=== PATIENT | male | born 1995 | race Caucasian/White ===

== ENCOUNTER → 2017-03-01 | Outpatient (CLI) | payer BC | LOC: MRI 09:00 | DX: H47.333 Pseudopapilledema of optic disc, bilateral (principal); H47.323 Drusen of optic disc, bilateral | CPT/HCPCS: 70543; A9577 ==

== ENCOUNTER → 2017-03-15 | Outpatient (CLI) | payer BC | LOC: RAD 08:30 | DX: H47.11 Papilledema associated with increased intracranial pressure (principal) ==